=== PATIENT | male | born 1990 | race Caucasian/White ===

== ENCOUNTER → 2020-09-08 17:05 | Outpatient (BNVA) | payer OTHER, SELFPAY | PROVIDERS: Visit Provider Nurse Practitioner | DX: U07.1 COVID-19 (principal); B34.9 Viral infection, unspecified | CPT/HCPCS: 87635 ==

== ENCOUNTER → 2021-10-12 09:35 | Outpatient (BNVA) | payer OTHER, SELFPAY | PROVIDERS: PCP Family Medicine Adult Medicine; Visit Provider Family Medicine Adult Medicine | DX: R11.2 Nausea with vomiting, unspecified (principal); B34.9 Viral infection, unspecified | CPT/HCPCS: 87400; 87635 ==

== ENCOUNTER 2022-12-24 08:37 | Emergency (ER) | payer SELFPAY ==
--- NOTE | 2022-12-24 08:45 | W.ED.ABDPA2 ---
HPI - Abdominal Pain General: Chief Complaint: Abdominal Pain Stated Complaint: lower left abd pain Time Seen by Provider: 12/24/22 08:39 Source: patient Mode of arrival: ambulatory Limitations: no limitations History of Present Illness: Patient is a 32-year-old male who presents to ED today with a complaint of left lower abdominal pain that he states awoke him from sleep around 4:45am this morning. He describes the pain as pressure . He states he did feel nauseous and had one episode of vomiting this morning after drinking cranberry juice. He states bowel movements have been normal. No fevers or chills. He denies hematuria, urinary frequency or urgency. No history of kidney or ureter stones. He is not having any genitalia pain, swelling, discomfort. MD elicited complaint: abdominal pain Pertinent past history: none Onset (ago): hour(s) Pain Consistency: constant Location: LLQ Severity: moderate Quality: aching and fullness Radiation: none Migration to: no migration Exacerbating factors: nothing Relieving factors: nothing Associated Symptoms: Reports nausea and vomiting; Denies change in bowel habits, chills, diarrhea, dysuria and fever(s) Treatments prior to arrival: other (tylenol) Review of Systems Const: Denies: fever(s), chills, body aches, fatigue or malaise Card: Denies: chest pain Resp: Denies: dyspnea GI: Reports: abdominal pain, nausea and vomiting; Denies: diarrhea or change in bowel habits : Denies: flank pain, difficulty urinating, dysuria, urinary frequency, urinary urgency or urinary hesitancy Musc: Denies: neck pain, back pain, extremity pain or joint pain Skin/Breast: Denies: rash Neuro: Denies: headache(s), numbness in extremities, weakness in extremities or sensory changes [facility] ED PFSH: Medical History Chronic GERD Morbid obesity with BMI of 40.0-44.9, adult Nausea & vomiting Otitis media Viral syndrome Social History Smoking and tobacco status: current every day smoker Alcohol intake: never Substance/Drug Use: never Physical Exam Const: COMMON NORMALS: no acute distress, patient oriented x3, no limitations, alert and well nourished GENERAL APPEARANCE: cooperative NUTRITIONAL APPEARANCE: obese ORIENTATION/CONSCIOUSNESS: Yes awake, Yes oriented to person, Yes oriented to place and Yes oriented to time Eye: COMMON NORMALS: no scleral icterus Resp: COMMON NORMALS: normal respiratory effort and clear to auscultation bilaterally AUSCULTATION: clear to auscultation bilaterally Cardio: COMMON NORMALS: regular rate and regular rhythm RATE: regular rate RHYTHM: regular rhythm GI: COMMON NORMALS: Normal to inspection, nondistended, normoactive bowel sounds present, Soft to palpation and no masses INSPECTION: Yes normal to inspection AUSCULTATION: Yes normoactive bowel sounds PALPATION: Yes Soft to palpation, Yes Tenderness to palpation present (GI) (L lower abdomen), No Guarding due to palpation present (GI) and No Rigid due to palpation : COMMON NORMALS: Yes no CVA tenderness and Yes normal external exam BLADDER/KIDNEY EXAM: Yes no CVA tenderness Back/Pelvis: COMMON NORMALS: no CVA tenderness, thoracic and lumbar spine normal to inspection, no thoracic nor lumbar tenderness and thoraco-lumbar ROM normal Extremity: COMMON NORMALS: normal to inspection GENERAL: Yes normal exam except as noted Neuro: ANGELA COMA SCALE: document GCS findings Angela coma scale eye opening: Spontaneous Pixley coma scale verbal response: Orientated Angela coma scale motor response: Obey commands Angela coma scale total score: 15 COMMON NORMALS: patient oriented x3 SENSORIUM/ORIENTATION: Yes alert, Yes oriented to person, Yes oriented to place and Yes oriented to time Skin: COMMON NORMALS: no rashes or lesions noted GENERAL SKIN EXAM: no rashes or lesions noted Course Vital Signs: Vital signs: Vital Signs Pulse Rate 56 L 12/24/22 08:47 Respiratory Rate 18 12/24/22 08:47 Blood Pressure 176/102 12/24/22 08:47 Pulse Oximetry 98 12/24/22 08:47 Oxygen Delivery Me thod Room Air 12/24/22 08:47 MDM - Abdominal Pain Medical Decision Making Patient with a 2.5 mm distal ureter stone. Pain is controllable here. Blood work is unremarkable. UA does not appear infected. Will have patient start straining urine and follow-up with urology. He is requesting ibuprofen instead of opiate pain medication. Return ED precautions given. Lab Data 12/24/22 08:54 12/24/22 08:54 Labs/Radiology: Radiology Impressions Abdomen/Pelvis CT 12/24/22 10:04 IMPRESSION: 1. Probable subtle obstructive stone in the distal left ureter measuring 2.5 mm. There is mild resultant hydronephrosis and periureteric stranding. Additional nonobstructive left renal stones are seen. 2. Hepatosplenomegaly with hepatic steatosis and periportal/retroperitoneal lymphadenopathy. Laboratory Results WBC 12.6 10^3/uL (4.0-10.0) H 12/24/22 08:54 RBC 5.03 10^6/uL (4.1-5.3) 12/24/22 08:54 Hgb 15.2 g/dL (11.7-16.6) 12/24/22 08:54 Hct 45.2 % (42.0-52.0) 12/24/22 08:54 MCV 89.9 fl (80-94) 12/24/22 08:54 MCH 30.2 pg (28.0-34.0) 12/24/22 08:54 MCHC 33.6 g/dL (30.0-36.0) 12/24/22 08:54 RDW 13.2 % (12.1-15.1) 12/24/22 08:54 Plt Count 314 10^3/cmm (130-400) 12/24/22 08:54 MPV 10.3 fL (7.4-10.4) 12/24/22 08:54 Neut % (Auto) 70.6 % 12/24/22 08:54 Lymph % (Auto) 19.4 % 12/24/22 08:54 [place] % (Auto) 6.7 % 12/24/22 08:54 Eos % (Auto) 2.3 % 12/24/22 08:54 Baso % (Auto) 0.5 % 12/24/22 08:54 Neut # (Auto) 8.90 10^3/uL (1.8-7.7) H 12/24/22 08:54 Lymph # (Auto) 2.5 10^3/uL (0.8-4.8) 12/24/22 08:54 [place] # (Auto) 0.8 10^3/uL (0.2-0.9) 12/24/22 08:54 Eos # (Auto) 0.3 10^3/uL (0.0-0.8) 12/24/22 08:54 Baso # (Auto) 0.1 10^3/uL (0.0-0.1) 12/24/22 08:54 Nucleated RBC % (auto) 0 % 12/24/22 08:54 Nucleated RBCs # 0.0 /100WBC 12/24/22 08:54 Sodium 138 mmol/L (136-145) 12/24/22 08:54 Potassium 3.9 mmol/L (3.5-5.1) 12/24/22 08:54 Chloride 102 mmol/L (98-107) 12/24/22 08:54 Carbon Dioxide 25 mmol/L (22-29) 12/24/22 08:54 Anion Gap 14.9 (5-19) 12/24/22 08:54 BUN 8 mg/dL (6-20) 12/24/22 08:54 Creatinine 1.0 mg/dL (0.7-1.2) 12/24/22 08:54 GFR Calculation 87.7 mL/min (90-130) L 12/24/22 08:54 Glucose 113 mg/dL (65-115) 12/24/22 08:54 Calculated Osmolality 285 mOsm/kg (285-295) 12/24/22 08:54 Calcium 9.2 mg/dL (8.5-10.5) 12/24/22 08:54 Total Bilirubin 0.4 mg/dL (0.15-1.2) 12/24/22 08:54 AST 24 U/L (0-40) 12/24/22 08:54 ALT 57 U/L (0-41) H 12/24/22 08:54 Alkaline Phosphatase 97 U/L (40-130) 12/24/22 08:54 Total Protein 7.2 g/dL (6.6-8.7) 12/24/22 08:54 Albumin 4.0 g/dL (3.5-5.2) 12/24/22 08:54 Globulin 3.2 g/dL (1.3-4.6) 12/24/22 08:54 Lipase 17 U/L (13-60) 12/24/22 08:54 Urine Color Dark yellow (Yellow) 12/24/22 09:14 Urine Appearance Hazy (CLEAR) A 12/24/22 09:14 Urine pH 5 (5-7) 12/24/22 09:14 Ur Specific [place] 1.025 (1.005-1.030) 12/24/22 09:14 Urine Protein 1+ (Negative) H 12/24/22 09:14 Urine Glucose (UA) Norm (Normal) 12/24/22 09:14 Urine Ketones 1+ (Negative) H 12/24/22 09:14 Urine Blood 3+ (Negative) H 12/24/22 09:14 Urine Nitrate Negative (Negative) 12/24/22 09:14 Urine Bilirubin 1+ (Negative) H 12/24/22 09:14 Urine Urobilinogen 1 mg/dL (Negative) H 12/24/22 09:14 Ur Leukocyte Esterase Trace (Negative) H 12/24/22 09:14 Urine RBC >100 /hpf (0-2) H 12/24/22 09:14 Urine WBC 0-4 /hpf (0-5) H 12/24/22 09:14 Ur Squamous Epith Cells None /hpf (0-5) 12/24/22 09:14 Amorphous Sediment Not Reportable 12/24/22 09:14 Urine Bacteria 1+ /hpf (NONE) H 12/24/22 09:14 Discharge Plan Discharge Patient Disposition: Home Clinical Impression: Calculus of distal left ureter Condition: Stable Prescriptions: New ibuprofen 800 mg tablet 800 mg PO Q8H PRN (Reason: pain) Qty: 20 0RF ondansetron 4 mg tablet,disintegrating 4 mg PO Q8H PRN (Reason: nausea and vomiting) Qty: 14 0RF No Action azithromycin 250 mg tablet See Rx Instructions PO .COMPLEX Qty: 6 0RF Rx Instructions: take 500 mg today (day 1), then 250 mg for 4 days (days 2-5) PO methylprednisolone [Medrol (Armando)] 4 mg tablets,dose pack See Rx Instructions PO PER PKG DIR Qty: 21 0RF Rx Instructions: PO PER PKG DIR albuterol sulfate [Ventolin HFA] 90 mcg/actuation HFA aerosol inhaler 2 puff inhalation Q6H PRN (Reason: shortness of breath or wheezing) Qty: 8.5 0RF polymyxin B sulf-trimethoprim 10,000 unit- 1 mg/mL drops 1 drp ophthalmic (eye) Q3H 7 Days Qty: 10 0RF Rx Instructions: while awake; do not exceed 6 doses in 24 hours Discharge Orders: Discharge ED (Routine); Ordered 12/24/22 Ordered By: Christina Mcfarlane Referrals: Phillip Bhatti MD [Primary Care Provider] - Patient Instructions: Ureteral Stones (ED) Activity Restrictions/Additional Instructions: As we discussed begin straining your urine. Bring any passed stones with you to your follow-up urology appointment. You may return to the emergency department for worsening or uncontrollable pain, repetitive episodes of vomiting, fevers greater than 100.4, inability to urinate, or any other concerns you may have. I hope you begin to feel better soon. Case management should contact you this week to set you up with your follow-up appointment. Coding Level of Care Code ED Managed Services Consultant for Adrián Garcia
[2022-12-24 08:47] VITALS: BP 176/102; PULSE 56; RESP 18; O2SAT 98; BMI 38.0
[2022-12-24 09:02] LABS: Basophils # 0.1 10^3/uL (0.0-0.1); Basophils % 0.5 %; Eosinophils # 0.3 10^3/uL (0.0-0.8); Eosinophils % 2.3 %; Hematocrit 45.2 % (42.0-52.0); Hemoglobin 15.2 g/dL (11.7-16.6); Lymphocytes # 2.5 10^3/uL (0.8-4.8); Lymphocytes % 19.4 %; Mean Corpuscular HGB Conc 33.6 g/dL (30.0-36.0); Mean Corpuscular Hemoglobin 30.2 pg (28.0-34.0); Mean Corpuscular Volume 89.9 fl (80-94); Mean Platelet Volume 10.3 fL (7.4-10.4); Monocytes # 0.8 10^3/uL (0.2-0.9); Monocytes % 6.7 %; Neutrophils % 70.6 %; Nucleated Red Blood Cells % 0 %; Platelet Count 314 10^3/cmm (130-400); Red Blood Count 5.03 10^6/uL (4.1-5.3); Red Cell Distribution Width 13.2 % (12.1-15.1); White Blood Count 12.6 10^3/uL (4.0-10.0)
[2022-12-24 09:33] LABS: Alanine Aminotransferase 57 U/L (0-41); Alkaline Phosphatase 97 U/L (40-130); Anion Gap 14.9 (5-19); Aspartate Amino Transferase 24 U/L (0-40); Blood Urea Nitrogen 8 mg/dL (6-20); Calcium 9.2 mg/dL (8.5-10.5); Carbon Dioxide 25 mmol/L (22-29); Chloride 102 mmol/L (98-107); Globulin 3.2 g/dL (1.3-4.6); Glomerular Filtration Rate 87.7 mL/min (90-130); Glucose 113 mg/dL (65-115); Lipase 17 U/L (13-60); Osmolality Calculated 285 mOsm/kg (285-295); Potassium 3.9 mmol/L (3.5-5.1); Sodium 138 mmol/L (136-145); Total Bilirubin 0.4 mg/dL (0.15-1.2); Total Protein 7.2 g/dL (6.6-8.7)
[2022-12-24 10:02] LABS: Add Urine Microscopic? YES; Bilirubin Urine 1+ (Negative); Blood Urine 3+ (Negative); Glucose Urine UA Norm (Normal); Ketones Urine 1+ (Negative); Leukocyte Esterase Urine Trace (Negative); Nitrate Urine Negative (Negative); Protein Urine 1+ (Negative); RBC Urine >100 /hpf (0-2); Specific Gravity, Urine 1.025 (1.005-1.030); Urine Appearance Hazy (CLEAR); Urine Color Dark Yellow (Yellow); Urobilinogen Urine 1 mg/dL (Negative); pH Urine 5 (5-7)
[2022-12-24 10:03] LABS: Add Urine Culture? Yes; Bacteria Urine 1+ /hpf; WBC Urine 0-4 /hpf (0-5)
--- NOTE | 2022-12-24 10:04 | CTR_ITS ---
PROCEDURE INFORMATION: Exam: CT Abdomen And Pelvis Without Contrast Exam date and time: 12/24/2022 10:29 AM Age: 32 years old Clinical indication: Left flank/left lower abdominal pain. TECHNIQUE: Imaging protocol: Computed tomography of the abdomen and pelvis without contrast. Radiation optimization: All CT scans at this facility use at least one of these dose optimization techniques: automated exposure control; mA and/or kV adjustment per patient size (includes targeted exams where dose is matched to clinical indication); or iterative reconstruction. REPORTING DATA: Count of CT and Cardiac NM exams in prior 12 months: This patient has received 0 known CTs and 0 known cardiac nuclear medicine studies in the 12 months prior to the current study. COMPARISON: No relevant prior studies available. RADIATION DOSE METRICS: Total DLP (mGy-cm): 1155.32 FINDINGS: Lungs: Subsegmental atelectasis in the lingula. No pericardial effusion. No hiatal hernia. Liver: The liver is enlarged measuring 22.4 cm. There is diffuse hepatic steatosis with foci of fatty sparing. Gallbladder and bile ducts: The gallbladder is unremarkable. Pancreas: The pancreas is unremarkable. Spleen: Spleen is enlarged measuring 13.0 cm. Adrenal glands: The adrenal glands are unremarkable. Kidneys and ureters: There is a probable subtle obstructive stone in the distal left ureter measuring 2.5 mm (series 7, image 87). There is mild resultant hydronephrosis and periureteric stranding. Additional nonobstructive left renal stones are seen. No hydronephrosis is seen on the right. Stomach and bowel: The stomach and small bowel are unremarkable. The colon is unremarkable. Appendix: The appendix is unremarkable. Intraperitoneal space: No free intraperitoneal air is seen. Vasculature: No abdominal aortic aneurysm. Lymph nodes: A high retroperitoneal lymph node on the left measures 1.3 x 1.0 cm. A periportal lymph node measures 1.0 x 1.4 cm. Urinary bladder: The bladder is largely decompressed. Reproductive: The prostate measures 3.1 x 3.1 cm. Bones/joints: No acute fracture is seen. Soft tissues: Small fat containing umbilical hernia. CT/CT kidney stone [id number] IMPRESSION: 1. Probable subtle obstructive stone in the distal left ureter measuring 2.5 mm. There is mild resultant hydronephrosis and periureteric stranding. Additional nonobstructive left renal stones are seen. 2. Hepatosplenomegaly with hepatic steatosis and periportal/retroperitoneal lymphadenopathy.
[2022-12-24] MEDS: ondansetron 2 mg/ML SDV 2 mL 4 MG IVP (11:00)
[2022-12-24] MEDS: ketorolac 60 mg/2 mL INJ 30 MG IVP (11:00)
--- NOTE | 2022-12-25 08:35 | DCPLANNER ---
Addendum entered by Diamond Lowery 01/02/23 14:53: Patient had a follow up appointment scheduled with urology - patient did not attend appointment. Addendum entered by Diamond Lowery 12/26/22 11:07: Patient has a follow up appointment scheduled for , December 28, [address]22 at 2:[address] Chen at urology. Original Note: search engine marketing manager had message to schedule a follow up appointment for patient with urology. search engine marketing manager sent patients information to the front office staff at urology. Patients information will be printed and reviewed. Clinic will call patient with appointment information.
== END 2022-12-24 11:30 | disposition home or self-care (01) ==
PROVIDERS: Emergency Provider Physician Assistant; PCP Family Medicine Adult Medicine
DX: N13.2 Hydronephrosis with renal and ureteral calculous obstruction (principal); F17.210 Nicotine dependence, cigarettes, uncomplicated
CPT/HCPCS: 74176; 80053; 81001; 83690; 85025; 87086; 96374; 96375; 99285; J1885; J2405

== ENCOUNTER 2023-01-17 03:46 | Emergency (ER) | payer SELFPAY ==
[2023-01-17] VITALS (12 sets, daily range): BP systolic 120–160; BP diastolic 72–100; PULSE 91–115; RESP 16–31; TEMP 36.7–37.1; O2SAT 93–100; BMI 38.0
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
[2023-01-17] MEDS: ondansetron 2 mg/ML SDV 2 mL 4 MG IVP (04:03)
[2023-01-17] MEDS: morphine 4 mg/mL SDV 1 mL IVP ×3 (04:03→07:21)
[2023-01-17] MEDS: sodium chloride 0.9% 1,000 ML 999 ML IV (05:05)
[2023-01-17] MEDS: propofol 10 mg/mL SDV 20 mL IVP (05:05)
--- NOTE | 2023-01-17 05:26 | XRR_ITS ---
PROCEDURE INFORMATION: Exam: XR Right Shoulder Exam date and time: 01/17/2023 5:31 AM Age: 32 years old Clinical indication: Other: 1st attempt post reduction; Additional info: Dislocation, reeval TECHNIQUE: Imaging protocol: Radiologic exam of the right shoulder. Views: 2 or more views. AP INT/ EXT ROTATION, SCAPULAR Y COMPARISON: CR (CHEST, ) 01/17/2023 4:25 AM FINDINGS: Bones/joints: There is persistent anterior inferior subcoracoid dislocation of the humeral head from the glenoid fossa. There is a comminuted fracture of the greater tuberosity of the humeral head with 0.8 cm posterior displacement of a 1.8 x 3.4 cm fracture fragment. The acromioclavicular region appears unremarkable. The visualized clavicle appears normal. Soft tissues: There are no radiopaque foreign bodies. Notes: If there is further concern, follow-up radiographs or MRI of the shoulder may be performed for complete assessment. XR/XR shoulder RT min 2V* [id number] IMPRESSION: Persistent anterior inferior subcoracoid dislocation of the humeral head. Right proximal humerus greater tuberosity region displaced fracture, as noted above.
[2023-01-17] MEDS: propofol 10 mg/mL SDV 20 mL 143 MG IVP (05:33)
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
--- NOTE | 2023-01-17 07:54 | XR_ITS ---
WS: [id number] Exam: XR shoulder RT min 2V* [id number] Date/Time of Exam: 01/17/2023 7:55 AM Reason For Exam: post reduction Comparison made with the previous exam performed earlier on the same day at 5:32 AM. Previously noted anterior dislocation of the shoulder has been reduced. Again noted is a displaced fr acture of the greater tuberosity humerus. XR/XR shoulder RT min 2V* [id number] IMPRESSION: 1. Satisfactory reduction of anterior right shoulder dislocation. 2. Displaced fracture of the greater tuberosity of the humerus.
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
[2023-01-17] MEDS: midazolam 1 mg/mL INJ 2 mL 5 MG IVP (07:58)
[2023-01-17] MEDS: fentaNYL 50 mcg/mL INJ 2mL 100 MCG IVP (07:58)
== END 2023-01-17 09:44 | disposition home or self-care (01) ==
PROVIDERS: Emergency Provider Emergency Medicine; PCP Family Medicine Adult Medicine
DX: S43.084A Other dislocation of right shoulder joint, initial encounter (principal); S42.251A Displaced fracture of greater tuberosity of right humerus, initial encounter for closed fracture; F17.210 Nicotine dependence, cigarettes, uncomplicated; V89.2XXA Person injured in unspecified motor-vehicle accident, traffic, initial encounter
CPT/HCPCS: 23650; 70450; 71045; 72125; 73030; 73200; 96361; 96374; 96375; 96376; 99285; J2250; J2270; J2405; J2704; J3010; J7030

== ENCOUNTER → 2023-01-31 10:59 | Outpatient (BNVA) | payer SELFPAY | PROVIDERS: PCP Family Medicine Adult Medicine; Visit Provider Orthopaedic Surgery | DX: S42.251A Displaced fracture of greater tuberosity of right humerus, initial encounter for closed fracture (principal); S43.084A Other dislocation of right shoulder joint, initial encounter; V89.2XXA Person injured in unspecified motor-vehicle accident, traffic, initial encounter; R20.0 Anesthesia of skin; R20.2 Paresthesia of skin | CPT/HCPCS: 73030 ==

== ENCOUNTER 2023-01-31 15:11 | Outpatient (CLI) | payer SELFPAY | END 2023-01-31 15:12 | disposition home or self-care (01) | LOC: SPT 15:11 | PROVIDERS: PCP Family Medicine Adult Medicine; Visit Provider Orthopaedic Surgery | DX: Z46.89 Encounter for fitting and adjustment of other specified devices (principal); S43.084D Other dislocation of right shoulder joint, subsequent encounter; S42.251D Displaced fracture of greater tuberosity of right humerus, subsequent encounter for fracture with routine healing; R20.0 Anesthesia of skin; R20.2 Paresthesia of skin; X58.XXXD Exposure to other specified factors, subsequent encounter | CPT/HCPCS: 97760; A4565 ==

== ENCOUNTER 2023-02-05 15:39 | Outpatient (CLI) | payer OTHER, SELFPAY ==
--- NOTE | 2023-02-05 16:00 | CT_ITS ---
WS: [id number] CT RIGHT SHOULDER, NONCONTRAST, 3-D. HISTORY:fracture. Technique: All CT scans at [facility] use at least one of these dose optimization techniques: automated exposure control; mA and/or kV adjustment per patient size (includes targeted exams where dose is matched to clinical indication); or iterative reconstruction. DLP: 567.56 mGy.cm COMPARISON: 01/17/2023, radiograph 01/31/[address] the humeral head is no longer dislocated. Humeral head is normally seated in the g lenoid fossa. Comminuted fractures involving the humeral head with only mild displacement. There are multiple small osseous fragments along the superior anterior humeral head. Fracture extends through t he greater tuberosity. There are no fracture fragments along the glenohumeral joint. Largest separati on along the fracture line is 5 mm. Glenoid and scapula are normal. Normal clavicle. Lung apices clear. Normal AC joint. Visualized ribs are normal. CT/CT shoulder RT wo con* [id number] IMPRESSION: 1. Comminuted fracture involving the RIGHT greater tuberosity. Several small f ragments by up to 5 mm. No fracture fragments extend into the joint. 2. Previously described dislocation has been reduced.
== END 2023-02-05 15:40 | disposition home or self-care (01) ==
PROVIDERS: PCP Family Medicine Adult Medicine; Visit Provider Orthopaedic Surgery
DX: S42.251A Displaced fracture of greater tuberosity of right humerus, initial encounter for closed fracture (principal); S43.084A Other dislocation of right shoulder joint, initial encounter; X58.XXXA Exposure to other specified factors, initial encounter
CPT/HCPCS: 73200

== ENCOUNTER → 2023-02-22 13:57 | Outpatient (BNVA) | payer OTHER, SELFPAY | PROVIDERS: PCP Family Medicine Adult Medicine; Visit Provider Student in an Organized Health Care Education/Training Program | DX: S42.251A Displaced fracture of greater tuberosity of right humerus, initial encounter for closed fracture (principal); S43.084A Other dislocation of right shoulder joint, initial encounter; X58.XXXA Exposure to other specified factors, initial encounter | CPT/HCPCS: 73030 ==

== ENCOUNTER 2023-02-27 07:47 | Outpatient (RCR) | payer OTHER, SELFPAY | END 2023-03-19 23:59 | disposition home or self-care (01) | LOC: SPT 07:47 | PROVIDERS: Visit Provider Student in an Organized Health Care Education/Training Program | DX: S42.254D Nondisplaced fracture of greater tuberosity of right humerus, subsequent encounter for fracture with routine healing (principal); X58.XXXD Exposure to other specified factors, subsequent encounter | CPT/HCPCS: 97110; 97161 ==

== ENCOUNTER 2023-03-20 01:00 | Outpatient (RCR) | payer OTHER, SELFPAY | END 2023-04-19 23:59 | disposition home or self-care (01) | LOC: SPT 01:00 | PROVIDERS: Visit Provider Student in an Organized Health Care Education/Training Program | DX: S42.254D Nondisplaced fracture of greater tuberosity of right humerus, subsequent encounter for fracture with routine healing (principal); X58.XXXD Exposure to other specified factors, subsequent encounter | CPT/HCPCS: 97110 ==

== ENCOUNTER → 2023-04-10 14:06 | Outpatient (BNVA) | payer OTHER, MEDICAID, SELFPAY | PROVIDERS: Visit Provider Student in an Organized Health Care Education/Training Program | DX: S42.251A Displaced fracture of greater tuberosity of right humerus, initial encounter for closed fracture (principal); S43.084A Other dislocation of right shoulder joint, initial encounter; S44.30XA Injury of axillary nerve, unspecified arm, initial encounter; V89.2XXA Person injured in unspecified motor-vehicle accident, traffic, initial encounter | CPT/HCPCS: 73030 ==

== ENCOUNTER → 2023-05-03 17:40 | Outpatient (BNVA) | payer OTHER, SELFPAY | PROVIDERS: Visit Provider Emergency Medicine | DX: J02.9 Acute pharyngitis, unspecified (principal); R52 Pain, unspecified; J06.9 Acute upper respiratory infection, unspecified | CPT/HCPCS: 87071; 87426; 87880 ==

== ENCOUNTER 2024-05-21 11:26 | Emergency (ER) | payer OTHER, SELFPAY ==
[2024-05-21 11:33] VITALS: BP 169/102; PULSE 88; RESP 20; TEMP 36.7; O2SAT 100; BMI 42.5
[2024-05-21] MEDS: ketorolac 60 mg/2 mL INJ IM (12:31)
[2024-05-21] MEDS: dexamethasone 10 mg/mL INJ IM (12:32)
--- NOTE | 2024-05-21 12:34 | W.ED.HA ---
HPI - Headache General: Chief Complaint: Headache Stated Complaint: headache (3xdays) Time Seen by Provider: 05/21/24 11:33 History of Present Illness: Patient presents with a right-sided headache. Located around his right eye. Been present for about 3 days. Gets better with ibuprofen but has continued to come back. He gone to an urgent care and was told it might be a migraine. He does not have a history of migraines. No fevers. No neck pain. No nuchal rigidity. No vision changes. No nausea or vomiting. Related Data Previous Rx's Medication Instructions Recorded azelastine 137 mcg (0.1 %) nasal 2 spray intranasal BID congestion 11/02/23 spray #30 mL ibuprofen 800 mg tablet 800 mg PO Q8H PRN pain #30 tabs 05/20/24 dexamethasone 6 mg tablet 6 mg PO DAILY 5 days #5 tabs 05/21/24 diclofenac sodium 50 mg 50 mg PO BID PRN pain #14 tabs 05/21/24 tablet,delayed release doxycycline hyclate 100 mg capsule 100 mg PO BID 7 days #14 caps 05/21/24 Allergies Allergy/AdvReac Type Severity Reaction Status Date / Time amoxicillin Allergy throat Verified 05/21/24 11:39 swells Penicillins Allergy RASH Verified 05/21/24 11:39 Review of Systems Narrative: Constitutional symptoms: Negative except as documented in HPI. Skin symptoms: Negative except as documented in HPI. Eye symptoms: Negative except as documented in HPI. ENMT symptoms: Negative except as documented in HPI. Respiratory symptoms: Negative except as documented in HPI. Cardiovascular symptoms: Negative except as documented in HPI. Gastrointestinal symptoms: Negative except as documented in HPI. Genitourinary symptoms: Negative except as documented in HPI. Musculoskeletal symptoms: Negative except as documented in HPI. Neurologic symptoms: Negative except as documented in HPI. Psychiatric symptoms: Negative except as documented in HPI. Endocrine symptoms: Negative except as documented in HPI. PFSH ED PFSH: Medical History Allergic rhinitis due to allergen Sinusitis Morbid obesity with BMI of 40.0-44.9, adult Chronic GERD Social History Smoking and tobacco/nicotine status: current every day tobacco/nicotine user Alcohol intake: never Substance/Drug Use: never Physical Exam Narrative: EXAM NARRATIVE: General: Alert, no acute distress. Skin: Warm, dry. Head: Normocephalic, atraumatic. Neck: Supple, trachea midline. Eye: Extraocular movements are intact. Ears, nose, mouth and throat: mucosa moist. Cardiovascular: Regular, Normal peripheral perfusion. Respiratory: Lungs are clear to auscultation, respirations are non-labored, breath sounds are equal, Symmetrical chest wall expansion. Gastrointestinal: Soft, Nontender, Non distended Musculoskeletal: Normal ROM, no deformity. Neurological: Alert and oriented, No focal neurological deficit observed. Psychiatric: Cooperative, appropriate mood & affect. Course Vital Signs: Vital signs: Vital Signs Temperature 98.1 F 05/21/24 11:33 Pulse Rate 88 05/21/24 11:33 Respiratory Rate 20 H 05/21/24 11:33 Blood Pressure 169/102 05/21/24 11:33 Pulse Oximetry 100 05/21/24 11:33 Oxygen Delivery Me thod Room Air 05/21/24 11:33 MDM - Headache Medical Decision Making Assessment and plan: Sinusitis Headache ?IM Toradol and IM Decadron in the emergency room. - Discharged home - Discussed plan with patient. Answered any questions. - Evaluation and treatment of this problem were appropriate in the emergency setting. No radiology studies performed this visit Discharge Plan Discharge Patient Disposition: Home Clinical Impression: Sinusitis Qualifiers: Sinusitis location: pansinusitis Chronicity: acute Recurrence: non-recurrent Qualified Code(s): J01.40 - Acute pansinusitis, unspecified Condition: Stable Prescriptions: New doxycycline hyclate 100 mg capsule 100 mg PO BID 7 Days Qty: 14 0RF dexamethasone 6 mg tablet 6 mg PO DAILY 5 Days Qty: 5 0RF diclofenac sodium 50 mg tablet,delayed release (DR/EC) 50 mg PO BID PRN (Reason: pain) Qty: 14 0RF No Action azelastine 137 mcg (0.1 %) aerosol,spray 2 spray intranasal BID Qty: 30 2RF Rx Instructions: administer into each nostril ibuprofen 800 mg tablet 800 mg PO Q8H PRN (Reason: pain) Qty: 30 0RF Discharge Orders: Discharge ED (Routine); Ordered 05/21/24 Ordered By: Angelika Green Discharge Diet: Usual diet Discharge Activity: Increase activity as tolerated Patient Instructions: Acute Headache (ED) Activity Restrictions/Additional Instructions: [facility]. Please realize this is an emergency room and that we are providing you with a medical screening exam and this may not be complete and all inclusive of all the testing and or work up that you may need to determine your ailment or severity of your illness. You have been screened and evaluated and felt safe for discharge. Health conditions do change or evolve sometimes and as such it is important that you follow up with your Primary Doctor to be re checked, 3-5 days is a general good time frame for follow up. You are always welcome to return to the ED for re assessment if your symptoms are worsening or you have new concerns Coding Level of Care Code ED Recycling Operator for Adrián Garcia
[2024-05-21 12:41] VITALS: BP 134/89; PULSE 75; O2SAT 99
[2024-05-21 13:25] VITALS: BP 122/80; PULSE 76; RESP 16; O2SAT 99
== END 2024-05-21 12:48 | disposition home or self-care (01) ==
PROVIDERS: Emergency Provider Emergency Medicine
DX: J01.40 Acute pansinusitis, unspecified (principal); Z72.0 Tobacco use
CPT/HCPCS: 96372; 99284; J1100; J1885